=== PATIENT | female | born 1995 | race Caucasian/White ===

== ENCOUNTER 2017-11-12 14:36 | Emergency (ER) | payer OTHER ==
[~2017-11-12] VITALS: Ht 157.5 cm; Wt 72.8 kg
[2017-11-12 15:17] LABS: HEMATOCRIT 38.9 % (36.0-46.0); HEMOGLOBIN 13.2 G/DL (11.9-15.5); MCH 31.7 PG (29.0-34.0); MCHC 33.9 G/DL (30.0-36.0); MCV 93.5 FL (83-99); PLATELET COUNT 255 K/uL (156-360); RBC DIS.WIDTH-CV 13.2 % (11.8-14.6); RBC DIS.WIDTH-SD 45.1 % (39-53); RED BLOOD COUNT 4.16 M/uL (3.80-5.20); WHITE BLOOD COUNT 8.1 K/uL (4.1-10.2)
[2017-11-12 15:31] LABS: ALBUMIN 4.2 g/dL (3.2-4.8)
[2017-11-12 15:32] LABS: CHLORIDE 108 mEq/L (99-109); SODIUM 142 mEq/L (136-147)
[2017-11-12 15:34] LABS: GLUCOSE 103 mg/dL (70-99); TOTAL PROTEIN 7.3 g/dL (6.4-8.3)
[2017-11-12 15:36] LABS: TOTAL BILIRUBIN 0.4 mg/dL (0.0-1.0)
[2017-11-12 15:37] LABS: ALKALINE PHOSPHATASE 107 IU/L (3-129)
[2017-11-12 15:38] LABS: CREATININE 0.8 mg/dL (0.6-1.3)
[2017-11-12 15:39] LABS: AST (GOT) 18 IU/L (2-34); UREA NITROGEN (BUN) 11 mg/dL (9-23)
[2017-11-12 15:41] LABS: ALT (GPT) 17 IU/L (3-49); LIPASE 33 U/L (1.0-51.0)
[2017-11-12 15:41] LABS: BILIRUBIN NEGATIVE; BLOOD LARGE; COLOR YELLOW ((YELLOW)); GLUCOSE (STRIP) NEGATIVE; KETONES NEGATIVE; LEUKOCYTES NEGATIVE; NITRITE POSITIVE; PROTEIN (STRIP) 30; SPECIFIC GRAVITY 1.021 (1.000-1.030)
[2017-11-12 15:43] LABS: GFR ESTIMATE (CALCULATED) > 59 mL/min/
[2017-11-12 15:47] LABS: QUANTITATIVE HCG < 4.0 MIU/ML
[2017-11-12 15:47] LABS: APPEARANCE HAZY ((CLEAR))
[2017-11-12 16:31] LABS: RED BLOOD CELLS TNTC /HPF (0-5)
[2017-11-12 16:32] LABS: BACTERIA 3+ /HPF; EPITHELIAL CELLS 2+ /HPF; MUCUS TRACE /LPF; UCUL ADDED? YES
[2017-11-12] MEDS ORDERED: KEFLEX500 MG PO (17:33)
[2017-11-12 17:37] LABS: SOURCE SWAB
[2017-11-12 17:45] VITALS: BP 92/73
== END 2017-11-12 17:47 | disposition home or self-care (01) ==
LOC: EME 14:36
PROVIDERS: Nurse Practitioner Family
DX: R10.30 Lower abdominal pain, unspecified (principal); N93.9 Abnormal uterine and vaginal bleeding, unspecified; N39.0 Urinary tract infection, site not specified; F32.9 Major depressive disorder, single episode, unspecified; F41.9 Anxiety disorder, unspecified; J45.909 Unspecified asthma, uncomplicated; Z87.891 Personal history of nicotine dependence
CPT/HCPCS: 76856; 80053; 81003; 83690; 84702; 85027; 87077; 87086; 87186; 87210; 87480; 87491; 87510; 87591; 87660; 99281; 99285